=== PATIENT | male | born 1960 | race Two or more races ===

== ENCOUNTER 2016-08-10 13:13 | Inpatient (IN) | payer MEDICAID, OTHER ==
[2016-08-10 13:51] LABS: Hematocrit 51 % (42-52); Hemoglobin 16.7 g/dl (14.0-18.0); Mean Corpuscular HGB Conc 33 g/dl (31-36); Mean Corpuscular Hemoglobin 25 pg (27-31); Mean Corpuscular Volume 76 fL (80-94); Mean Platelet Volume 8 um3 (7.4-10.4); Red Cell Distribution Width 15 % (10.5-15); White Blood Count 14.8 10^3/ul (3.5-10.8)
[2016-08-10 14:02] LABS: Benzodiazepine Urine Screen None Detected (None Detect)
[2016-08-10 14:06] LABS: ALT 24 U/L (7-52); AST 18 U/L (13-39); Albumin 4.6 g/dL (3.2-5.2); Alkaline Phosphatase 55 U/L (34-104); Anion Gap 10 mmol/L (2-11); BUN/Creatinine Ratio 20.4 (8-20); Blood Urea Nitrogen 19 mg/dL (6-24); CO2 Carbon Dioxide 26 mmol/L (22-32); Calcium 10.1 mg/dL (8.6-10.3); Chloride 100 mmol/L (101-111); EGFR African American 107.7 (>60); EGFR Non-African American 83.7 (>60); Globulin 2.9 g/dL (2-4); Glucose 106 mg/dL (70-100); Potassium 3.9 mmol/L (3.5-5.0); Sodium 136 mmol/L (133-145); Total Protein 7.5 g/dL (6.4-8.9)
[2016-08-10] MEDS ORDERED: LORazepam TAB(*) 1 MG PO ONE (14:13)
[2016-08-10 14:15] LABS: Urine Bacteria Absent (Absent); Urine Bilirubin Negative (Negative); Urine Glucose Negative (Negative); Urine Nitrite Negative (Negative)
[2016-08-10 14:21] LABS: TSH (Thyroid Stimulating Horm) 4.02 mcIU/mL (0.34-5.60)
[2016-08-10 14:22] LABS: Acetaminophen < 15 mcg/mL; Alcohol < 10 mg/dL (<10); Salicylate < 2.50 mg/dL (<30)
[2016-08-10] MEDS ORDERED: Acetaminophen TAB* 325 MG PO PRN (16:06)
[2016-08-10] MEDS ORDERED: Nicotine Inhaler* 10 MG AMP INH PRN (16:06)
[2016-08-10] MEDS ORDERED: Al Hydrox/Mg Hydrox/Simet LIQ* 30 ML UDC PO PRN (16:06)
[2016-08-10] MEDS ORDERED: hydrOXYzine HCL TAB* 50 MG PO PRN (16:09)
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
[2016-08-10] MEDS: QUEtiapine XR TAB* 200 MG PO SCH (20:30)
[2016-08-10] MEDS: Mirtazapine TAB* 15 MG PO SCH (20:30)
[2016-08-11] MEDS: Citalopram TAB* 20 MG PO SCH (08:49)
[2016-08-11] MEDS: Vitamin THERAPEUTIC TAB PO SCH (08:49)
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
[2016-08-11] MEDS: QUEtiapine XR TAB* 200 MG PO SCH (20:58)
[2016-08-11] MEDS: Mirtazapine TAB* 15 MG PO SCH (20:58)
[2016-08-12] MEDS: Vitamin THERAPEUTIC TAB PO SCH (08:19)
[2016-08-12] MEDS: Citalopram TAB* 20 MG PO SCH (08:20)
[2016-08-12 08:23] VITALS: BP 113/76
--- NOTE | 2016-08-13 00:28 | DS ---
DISCHARGE SUMMARY: DATE OF ADMISSION: 08/10/16 DATE OF DISCHARGE: 08/12/16 DISCHARGE DIAGNOSES: Are as follows: Riesel I: Major depressive disorder, recurrent, severe without psychotic features. Riesel II: Deferred. Riesel III: Benign prostatic hypertrophy. Riesel IV: Severe primary support, legal, and financial stressors. Riesel V: At the time of admission was 34 and at the time of discharge is 59. CONDITION AT THE TIME OF DISCHARGE: Improved. The patient is calm, cooperative. He appears to euthymic. He has been eating all of his meals, bathing appropriately. He is future oriented with a plan to receive case management services through [facility] and to pursue getting disability and unemployment. The major stressor leading to this hospitalization was his lack of access to medications after losing his insurance approximately 4 months ago. We have addressed this by getting him set up with Medicaid for which the patient is very grateful and his medications have been resumed, which he is tolerating well. The patient steadfastly denies suicidal ideations. When asked for reasons of why he wants to remain live, he indicates his strong pee in God, believing that suicide would be a sin and that he feels the God is trying to teach him humility, which is lessen that he feels prepared to learn. MENTAL STATUS EXAMINATION: At the time of discharge, the patient is an aging male, appearing somewhat older than his stated age. He has fair grooming, wearing blue patient scrubs. He has a salt and pepper graying jones. He makes good eye contact and is easy to establish a rapport with. Speech has a thick [place] accent. Mood is euthymic with a full affect. Thought process is linear and goal directed. Thought content is significant for his desire to go home from the hospital and meet his new tenant, who is renting a room in his house in the [facility]. The patient denies suicidal or homicidal thoughts. He denies auditory or visual hallucinations. There is no evidence of paranoia. Insight and judgement appeared to be fair given his willingness to follow up with outpatient treatment in the community. Cognitively, he is awake and alert with what would appear to be an average intellect. DISCHARGE INSTRUCTIONS: To the patient are as follows: A. Medications: He is taking citalopram 20 mg p.o. daily, mirtazapine 45 mg p.o. q.h.s., Seroquel XR 200 mg p.o. q.h.s. B. Diet: Regular. C. Activities: As tolerated. The patient is strongly encouraged to abstain from tobacco products; however, he is declining continuation of nicotine replacement therapies on an outpatient basis indicating his preference to continue smoking cigarettes at this time. There are no studies pending at the time of discharge. D. Followup care: The patient will follow up with the [facility] on 08/14/16. There, he sees therapist, Candelario Paz, and psychiatrist, Terence Weber. HOSPITAL COURSE: Part A: Reason for admission: The patient is a 56-year-old male with a history of major depressive disorder, admitted on an involuntary status after the police responded to a 911 call by a member of the social security administration, who had reported that the patient had made a suicidal statement over the phone while he was seeking disability services. The patient continued to present with depressed mood and suicidal ideations in our emergency room. He was noted to have made a statement "if it was not for my pee in God, I would have killed myself by now." Apparently, the patient has been functioning extremely below his baseline due to stress that he has been experiencing for at least the past 3 years. He indicates that he has orders of protection by both his and his elderly father with claims that he has been abusive towards his father, his , and his children. As a result , he states that he has lost all family contacts and social supports. He does not know at this time where his parents or his children are residing or who is caring for them. He does have a court date to resolve his orders of protection on 08/21/16. 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 He also states that he had difficulty falling asleep, anhedonia, decreased energy, poor concentration, lack of appetite with unintentional 50-pound weight loss, psychomotor retardation, and social isolation. He has been spending all day in bed, unable to shower or maintain his hygiene, and unable to go out and look for a new job. He indicates that every day he thinks about suicide, but has not acted on this because of his pee. 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 Apparently, he had been put on some type of occupational probation due to some problems with his teaching and his interaction with female students. In 2015, his only sibling, a brother in [place], of cancer resulting in his parents coming to live with him here in the [place]. Apparently, his second moved out in 2012 with their 4 children and gotten order of protection against him, which he violated and he has been on probation ever since, which has been approximately 2 -1/2 years. Subsequently, his mother developed Alzheimer's disease and his father developed some physical disabilities resulting in increased caregiver stress. Things came to a head in April of 2016, when his father and mother were both medically hospitalized here at [facility], somehow Adult Protective Services became involved and there was an accusation that he had been physically aggressive towards his father resulting in an order of protection in which the patient had to leave his own house until his parents could be placed. He was staying briefly in a motel and sleeping in his car and then went to a local homeless group home around the time that he was terminated from [facility] in late April. He was not actually able to return to his home until sometime in July 2016 and does not know currently where his parents are. Part B: Psychiatric treatment rendered: The patient was admitted to the adult behavioral health unit and placed on q.15-minute checks for his own safety. We immediately resumed the medications that he had stopped taking 4 months ago when he had lost his insurance. These included citalopram 20 mg daily, mirtazapine 45 mg at night, and quetiapine XR 200 mg at night. He tolerated these quite well. His main stressor appeared to be lack of access to medications and therefore, we hooked him up with Medicaid coverage for which he was very grateful. We are able to talk to his therapist, Candelario Paz, at [facility], who indicated that the patient does regularly follow up with them. They felt that resuming his medications would likely be very helpful. In addition, they indicated his need for case management services in order to help him navigate social science analyst in the community specifically to get on unemployment and perhaps disability coverage in order to have an income. For this reason, we were able to fill out an application for case management services in the community, which the patient was fully cooperative with. He continued to express his pee in God and his assurance that he would not take his own due to his relationship with God. We did not see any evidence of self harm while he was on our unit and we felt that his issues could be addressed effectively in the outpatient setting. At this time, we do not feel that it would be justified to keep him any further on an involuntary basis as he is requesting discharge and he appears motivated to get the help that he needs in a less restrictive setting. [id number]/CPS #: [id number] MTDD
== END 2016-08-12 14:15 | disposition home or self-care (01) | DRG 751 ==
LOC: ED 13:13 → BSU 16:06
PROVIDERS: ADMIT Psychiatry & Neurology Psychiatry; ATTEND Psychiatry & Neurology Psychiatry
DX: F33.2 Major depressive disorder, recurrent severe without psychotic features (principal); F17.210 Nicotine dependence, cigarettes, uncomplicated; N40.0 Benign prostatic hyperplasia without lower urinary tract symptoms; Z81.8 Family history of other mental and behavioral disorders
CPT/HCPCS: 36415; 80053; 80307; 80320; 80329; 81003; 81015; 84443; 85025; 87086; 99222; 99238; A9270-GY; G0480

== ENCOUNTER 2016-10-15 10:56 | Inpatient (IN) | payer MEDICAID, OTHER ==
[2016-10-15] MEDS ORDERED: LORazepam TAB(*) 1 MG PO ONE (11:35)
--- NOTE | 2016-10-15 11:44 | ED ---
Psychiatric Complaint - HPI Summary HPI Summary: 56 male presents with complaints of suicidal ideations and thoughts of suicide. Patient states he ran out of his medications 2 days ago and his depression and anxiety has become out of control. Denies any homicidal ideations. Has not attempted to hurt himself or others. States he is very depressed because he lost everything in his life. He has not showered or ate in 2 days. Unable to take care of himself. Denies hallucinations, alcohol and drug use. States he has been hospitalized multiple times in the past with the last time being in April. Admits to BPH, but denies other PMHx. States his psychiatrist, the mental health director, is retiring and has been unable to see him and refill his meds. - History Of Current Complaint Chief Complaint: EDMentalHealth Time Seen by Provider: 10/15/16 11:10 Hx Obtained From: Patient Onset/Duration: Gradual Onset, Lasting Days - 2, Worse Since Timing: Constant Severity Currently: Severe Character: Depressed, Anxious Aggravating Factor(s): Recent Stress, Other - ran out of psychiatric medications Alleviating Factor(s): Medication, Counseling Associated Signs And Symptoms: Positive: Sleep Disturbance - unable to sleep, Appetite Change - has not eaten or showered, Social Withdrawal Related History: Positive For: Prior Psychiatric Issues Has Suicidal: Reports: Thoughts. Denies: With A Plan, Demonstrates Gesture, Has Prior Attempt(s) Has Homicidal: Denies: Thoughts, With A Plan - Allergies/Home Medications Allergies/Adverse Reactions: Allergies Allergy/AdvReac Type Severity Reaction Status Date / Time No Known Allergies Allergy Verified 05/08/12 11:05 Home Medications: Home Medications Citalopram TAB* [CeleXA TAB*] 40 mg PO DAILY 10/15/16 [History Confirmed ] Rosuvastatin (NF) [Crestor (NF)] 10 mg PO BEDTIME 10/15/16 [History Confirmed ] PMH/Surg Hx/FS Hx/Imm Hx Endocrine/Hematology History: Reports: Hx Unexplained Bleeding - upper gi bleed 05/19/2012 Denies: Hx Anticoagulant Therapy, Hx Blood Disorders, Hx Blood Transfusions, Hx Bone Marrow Disease, Hx Diabetes, Hx Systemic Lupus Erythematosus, Hx Sickle Cell Disease, Hx Thyroid Disease, Hx Anemia Cardiovascular History: Reports: Hx Hypercholesterolemia Denies: Hx Angina, Hx Auto Implanted Cardiovert Defib, Hx Hypertension, Hx Pacemaker/ICD Comment Only: Other Cardiovascular Problems/Disorders - noted pt has bbb Respiratory History: Reports: Hx Pneumonia - currently has pneumonia last 2 weeks Denies: Hx Asthma, Hx Chronic Obstructive Pulmonary Disease (COPD) GI History: Reports: Hx Gastrointestinal Bleed - pt had bloody emesis and is reason for admission. Comment Only: Hx Ulcer - unknown. possible History: Reports: Hx Benign Prostatic Hyperplasia - had gone to md on 2012, Other Problems/Disorders - enlarged prostate Denies: Hx Acute Renal Failure, Hx Kidney Stones, Hx Renal Disease Musculoskeletal History: Reports: Hx Arthritis Denies: Hx Orthopedic Injury, Hx Osteoporosis Sensory History: Reports: Hx Contacts or Glasses - Patient has with him Denies: Hx Hearing Aid Opthamlomology History: Reports: Hx Contacts or Glasses - Patient has with him Neurological History: Reports: Hx Headaches, Hx Migraine Denies: Hx Dementia, Hx Seizures, Other Neuro Impairments/Disorders Psychiatric History: Reports: Hx Anxiety - pt takes anti anxiety med, and ativan , Hx Depression - unknown,, Hx Community Mental Health Tx, Hx of Violent Episodes Against Others - Patient has restraining order against him Denies: Hx Eating Disorder, Hx Substance Abuse - Surgical History Surgery Procedure, Year, and Place: n/a - Immunization History Immunizations Up to Date: Yes Infectious Disease History: Denies: Hx Hepatitis, Hx Human Immunodeficiency Virus (HIV), Traveled Outside the [place] in Last 30 Days - Family History Known Family History: Positive: Unknown, Other - Alzheimer's (mother) Family History: Pt is having a panic attack and unable to contribute a FHx - Social History Alcohol Use: None Alcohol Amount: wine today Substance Use Type: Reports: None Smoking Status (MU): Former Smoker Type: Cigarettes Length of Time of Smoking/Using Tobacco: 3 months Have You Smoked in the Last Year: Yes Review of Systems Constitutional: Negative Eyes: Negative ENT: Negative Cardiovascular: Negative Respiratory: Negative Gastrointestinal: Negative Musculoskeletal: Negative Skin: Negative Positive: Anxious, Depressed All Other Systems Reviewed And Are Negative: Yes Physical Exam Triage Information Reviewed: Yes Vital Signs On Initial Exam: Initial Vitals Temp Pulse Resp BP Pulse Ox 98.3 F 110 26 113/74 100 10/15/16 10:58 10/15/16 10:58 10/15/16 10:58 10/15/16 10:58 10/15/16 10:58 tachycardia noted, patient is anxious Vital Signs Reviewed: Yes Appearance: Positive: Well-Appearing - appears very anxious and upset, No Pain Distress, Well-Nourished Skin: Positive: Warm, Skin Color Reflects Adequate Perfusion, Dry Head/Face: Positive: Normal Head/Face Inspection Eyes: Positive: Normal, ANGEL LUIS, Conjunctiva Clear ENT: Positive: Normal ENT inspection, Hearing grossly normal, Pharynx normal, TMs normal Neck: Positive: Supple Respiratory/Lung Sounds: Positive: Clear to Auscultation, Breath Sounds Present. Negative: Decreased Breath Sounds, Rales, Rhonchi, Stridor, Wheezes Cardiovascular: Positive: Normal, RRR, Pulses are Symmetrical in both Upper and Lower Extremities. Negative: Murmur, Rub Abdomen Description: Positive: Nontender, Soft Bowel Sounds: Positive: Present Musculoskeletal: Positive: Normal, Strength/ROM Intact Neurological: Positive: Normal, Sensory/Motor Intact, Alert, Oriented to Person Place, Time Psychiatric: Positive: Anxious, Depressed AVPU Assessment: Alert Diagnostics - Vital Signs Vital Signs Temp Pulse Resp BP Pulse Ox 10/15/16 11:02 98.3 F 107 26 113/74 100 10/15/16 10:58 98.3 F 110 26 113/74 100 - Laboratory Result Diagrams: 10/15/16 11:24 10/15/16 11:24 Lab Statement: Any lab studies that have been ordered have been reviewed, and results considered in the medical decision making process. Course/Dx - Course Course Of Treatment: patient was medically cleared for [facility]. given ativan to help with anxiety. decided he will be admitted to [facility], voluntarily. WBC and RBC elevated however compared to previous labs and he has hemachromatosis. Labs similar previously. No acute medical problem at this time. Clear for admission. - Differential Dx/Clinical Impression Differential Diagnosis/HQI/PQRI: Positive: Acute Psychosis, Anxiety, Depression Provider Diagnosis: Depression, Anxiety - Physician Notifications Discussed Care Of Patient With: [facility] Instructed by Provider To: Admit As Inpatient Patient Is Medically Stable For: Psych Evaluation Discharge - Discharge Plan Condition: Stable Disposition: PSYCHIATRIC FACILITY-[facility]
[2016-10-15 12:15] LABS: Hematocrit 51 % (42-52); Hemoglobin 16.4 g/dl (14.0-18.0); Mean Corpuscular HGB Conc 32 g/dl (31-36); Mean Corpuscular Hemoglobin 24 pg (27-31); Mean Corpuscular Volume 76 fL (80-94); Mean Platelet Volume 8 um3 (7.4-10.4); Red Blood Count 6.77 10^6/ul (4.0-5.4); Red Cell Distribution Width 15 % (10.5-15); White Blood Count 12.2 10^3/ul (3.5-10.8)
[2016-10-15 12:26] LABS: ALT 26 U/L (7-52); AST 29 U/L (13-39); Albumin 4.4 g/dL (3.2-5.2); Alkaline Phosphatase 54 U/L (34-104); Anion Gap 11 mmol/L (2-11); BUN/Creatinine Ratio 19.4 (8-20); Blood Urea Nitrogen 18 mg/dL (6-24); CO2 Carbon Dioxide 22 mmol/L (22-32); Calcium 9.5 mg/dL (8.6-10.3); Chloride 102 mmol/L (101-111); EGFR African American 107.7 (>60); EGFR Non-African American 83.7 (>60); Globulin 2.7 g/dL (2-4); Glucose 93 mg/dL (70-100); Sodium 135 mmol/L (133-145); Total Protein 7.1 g/dL (6.4-8.9)
[2016-10-15 12:34] LABS: Acetaminophen < 15 mcg/mL; Alcohol < 10 mg/dL (<10); Salicylate < 2.50 mg/dL (<30)
[2016-10-15 12:45] LABS: TSH (Thyroid Stimulating Horm) 1.61 mcIU/mL (0.34-5.60)
[2016-10-15 12:48] LABS: Urine Bacteria Absent (Absent); Urine Bilirubin Negative (Negative); Urine Glucose Negative (Negative); Urine Nitrite Negative (Negative)
[2016-10-15] MEDS ORDERED: Nicotine GUM* 2 MG PO PRN (13:06)
[2016-10-15] MEDS ORDERED: Nicotine Inhaler* 10 MG AMP INH PRN (13:06)
[2016-10-15] MEDS ORDERED: Al Hydrox/Mg Hydrox/Simet LIQ* 30 ML UDC PO PRN (13:06)
[2016-10-15] MEDS ORDERED: Acetaminophen TAB* 325 MG PO PRN (13:06)
[2016-10-15 13:23] LABS: Benzodiazepine Urine Screen Presumptive Positive (None Detect)
[2016-10-15] MEDS ORDERED: Mouth Piece, Nicotine* 1 EACH CARTRIDGE INH ONE (14:00)
[2016-10-15] MEDS: Atorvastatin* 20 MG TAB PO SCH (20:29)
[2016-10-15] MEDS: QUEtiapine XR TAB* 200 MG PO SCH (20:30)
[2016-10-15] MEDS: Mirtazapine TAB* 15 MG PO SCH (20:30)
[2016-10-15] MEDS: Nicotine Patch Removal NOTE PATCH OFF SCH (22:18)
[2016-10-16] MEDS: Nicotine PATCH 21 MG/24 HR* PATCH TRANSDERM SCH (08:32)
[2016-10-16] MEDS: Citalopram TAB* 40 MG PO SCH (08:32)
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
[2016-10-16] MEDS: Mirtazapine TAB* 15 MG PO SCH (20:29)
[2016-10-16] MEDS: Atorvastatin* 20 MG TAB PO SCH (20:29)
[2016-10-16] MEDS: QUEtiapine XR TAB* 200 MG PO SCH (20:29)
[2016-10-16] MEDS: Nicotine Patch Removal NOTE PATCH OFF SCH (20:45)
[2016-10-17] MEDS: Citalopram TAB* 40 MG PO SCH (08:38)
[2016-10-17] MEDS: LORazepam TAB(*) 1 MG PO PRN ×3 (08:38→20:04)
[2016-10-17] MEDS: Nicotine PATCH 21 MG/24 HR* PATCH TRANSDERM SCH (08:39)
[2016-10-17 08:45] LABS: HDL Cholesterol 54.8 mg/dL
--- NOTE | 2016-10-17 18:08 | PN ---
Subjective - Subjective Service Type: 72922 Hosp care 15 min low complexity Subjective: The patient remains anxious and depressed but denies SI. He states that he has talked to Dr. Weber about the possibility of ECT but is ambivalent about it. "It's a possibility of last resort." He is active on the milieu and attending groups. Objective - Appearance Appearance: Well Developed/Nourished Dysmorphic Features: No Hygiene: Normal Grooming: Well Kept - Behavior Psychomotor Activities: Abnormal-Decreased Exhibits Abnormal Movement: No - Attitude and Relatedness Attitude and Relatedness: Cooperative Eye Contact: Good - Speech Quality: Unpressured Latencies: Normal Quantity: Appropriate - Mood Patient's Decription of Mood: "Sad" - Affect Observed Affect: Depressed Affect Consistent with: Dysphoria - Thought Process Patient's Thought Process: Coherent Thought Content: No Passive Wish, No Suicidal Planning, No Homicidal Ideation, No Paranoid Ideation - Sensorium Experiencing Hallucinations: No, Sensorium is Clear Type of Hallucinations: Visual: No, Auditory: No, Command: No - Level of Consciousness Level of Consciousness: Alert Orientation: Yes Intact, Yes Orientated to Time, Yes Orientated to Place, Yes Orientated to Person - Impulse Control Impulse Control: Tenuous - Insight and Judgement Insight and Judgement: Fair - Group Participation Particating in Group Activities: Yes - Medication Management Medication Management Adherence: Yes Assessment - Assessment Merits Inpatient Hospitalization: For Immediate Safety, For Stabilization Inpatient DSM-IV Dx: MDD recurrent, severe without psychotic features Clinical Impression: 56 y.o. , male, recently terminated [facility] with a history of recurrent MDD admitted on voluntary basis secondary to severe depression and passive SI. Plan - Plan Treatment Plan: Name: EZIO MINOR Birthdate: 1960 [id number] We have resumed outpatient medications, including citalopram 40mg PO qday, mirtazapine 45mg PO qhs and quetiapine XR 200mg PO qhs. Patient active in milieu activities. Continue to treat. Continued Medication Management: Continue Outpt Medication Medications: Current Medications Acetaminophen (Tylenol Tab*) 650 mg PO Q4H PRN PRN Reason: for pain; or Temp >101 F Al Hydrox/Mg Hydrox/Simethicone (Maalox Plus*) 30 ml PO Q4H PRN PRN Reason: INDIGESTION Atorvastatin Calcium (Lipitor*) 20 mg PO BEDTIME [facility] PRN Reason: Protocol Last Admin: 10/16/16 20:29 Dose: 20 mg Citalopram Hydrobromide (Celexa Tab*) 40 mg PO DAILY [facility] Last Admin: 10/17/16 08:38 Dose: 40 mg Lorazepam (Ativan Tab(*)) 1 mg PO Q6H PRN PRN Reason: ANXIETY Last Admin: 10/17/16 14:05 Dose: 1 mg Mirtazapine (Remeron Tab*) 45 mg PO BEDTIME [facility] Last Admin: 10/16/16 20:29 Dose: 45 mg Nicotine (Nicotine Inhaler*) 10 mg INH Q2H PRN PRN Reason: CRAVING Nicotine (Nicotine Patch 21 Mg/24 Hr*) 1 patch TRANSDERM DAILY@0800 [facility] Last Admin: 10/17/16 08:39 Dose: 1 patch Nicotine Polacrilex (Nicotine Gum*) 2 mg PO Q2H PRN PRN Reason: CRAVING Pharmacy Profile Note (Nicotine Patch Removal Note*) 1 note PATCH OFF 2100 [facility] Last Admin: 10/16/16 20:45 Dose: Not Given Quetiapine Fumarate (Seroquel Xr Tab*) 200 mg PO BEDTIME [facility] Last Admin: 10/16/16 20:29 Dose: 200 mg - Discharge Plan Discharge Plan: Inpatient Hospitalization
[2016-10-17] MEDS: Atorvastatin* 20 MG TAB PO SCH (20:05)
[2016-10-17] MEDS: Mirtazapine TAB* 15 MG PO SCH (20:05)
[2016-10-17] MEDS: QUEtiapine XR TAB* 200 MG PO SCH (20:05)
[2016-10-17] MEDS: Nicotine Patch Removal NOTE PATCH OFF SCH (21:27)
[2016-10-18] MEDS: Citalopram TAB* 40 MG PO SCH (08:17)
[2016-10-18] MEDS: LORazepam TAB(*) 1 MG PO PRN ×3 (08:17→21:44)
[2016-10-18] MEDS: Nicotine PATCH 21 MG/24 HR* PATCH TRANSDERM SCH (09:19)
[2016-10-18] MEDS: Atorvastatin* 20 MG TAB PO SCH (20:32)
[2016-10-18] MEDS: Mirtazapine TAB* 15 MG PO SCH (20:32)
[2016-10-18] MEDS: QUEtiapine XR TAB* 200 MG PO SCH (20:32)
[2016-10-18] MEDS: Nicotine Patch Removal NOTE PATCH OFF SCH (21:45)
[2016-10-19] MEDS: Citalopram TAB* 40 MG PO SCH (08:25)
[2016-10-19] MEDS: Nicotine PATCH 21 MG/24 HR* PATCH TRANSDERM SCH (08:25)
[2016-10-19] MEDS: LORazepam TAB(*) 1 MG PO PRN ×3 (08:26→21:24)
--- NOTE | 2016-10-19 11:43 | PN ---
Subjective - Subjective Service Type: 02161 Hosp care 15 min low complexity Subjective: The patient appears in better spirits today and denies SI. "The most miraculous thing happened here over the weekend. I found out that my son's best friend is admitted here also. I met him and we talked for over 4 hours. It made me feel so much better." The patient is asked about whether he would agree to having us sign him up for case management services in the community, now that his medicaid is up and active, and he enthusiastically agrees to this. He has been active in the milieu and going to all scheduled groups as expected. Objective - Appearance Appearance: Well Developed/Nourished Dysmorphic Features: No Hygiene: Normal Grooming: Fairly Well Kept - Behavior Psychomotor Activities: Normal Exhibits Abnormal Movement: No - Attitude and Relatedness Attitude and Relatedness: Cooperative Eye Contact: Fair - Speech Quality: Unpressured Latencies: Normal Quantity: Appropriate - Mood Patient's Decription of Mood: "Okay" - Affect Observed Affect: Fair Affect Consistent with: Euthymia - Thought Process Patient's Thought Process: Coherent Thought Content: No Passive Wish, No Suicidal Planning, No Homicidal Ideation, No Paranoid Ideation - Sensorium Experiencing Hallucinations: No, Sensorium is Clear Type of Hallucinations: Visual: No, Auditory: No, Command: No - Level of Consciousness Level of Consciousness: Alert Orientation: Yes Intact, Yes Orientated to Time, Yes Orientated to Place, Yes Orientated to Person - Impulse Control Impulse Control: Tenuous - Insight and Judgement Insight and Judgement: Fair - Group Participation Particating in Group Activities: Yes - Medication Management Medication Management Adherence: Yes Assessment - Assessment Merits Inpatient Hospitalization: Consolidate Improvements, Pending Safe DC Plan Inpatient DSM-IV Dx: MDD recurrent, severe without psychotic features Clinical Impression: 56 y.o. , male, [facility] with a history of recurrent MDD admitted on voluntary basis secondary to severe depression and passive SI. Plan - Plan Treatment Plan: Name: EZIO MINOR Birthdate: 1960 [id number] We have resumed outpatient medications, including citalopram 40mg PO qday, mirtazapine 45mg PO qhs and quetiapine XR 200mg PO qhs. Patient active in milieu activities. Will refer to outpatient case management services. Target d /c to home tomorrow (10/20). Continued Medication Management: Continue Outpt Medication Medications: Current Medications Acetaminophen (Tylenol Tab*) 650 mg PO Q4H PRN PRN Reason: for pain; or Temp >101 F Al Hydrox/Mg Hydrox/Simethicone (Maalox Plus*) 30 ml PO Q4H PRN PRN Reason: INDIGESTION Atorvastatin Calcium (Lipitor*) 20 mg PO BEDTIME [facility] PRN Reason: Protocol Last Admin: 10/18/16 20:32 Dose: 20 mg Citalopram Hydrobromide (Celexa Tab*) 40 mg PO DAILY [facility] Last Admin: 10/19/16 08:25 Dose: 40 mg Lorazepam (Ativan Tab(*)) 1 mg PO Q6H PRN PRN Reason: ANXIETY Last Admin: 10/19/16 08:26 Dose: 1 mg Mirtazapine (Remeron Tab*) 45 mg PO BEDTIME [facility] Last Admin: 10/18/16 20:32 Dose: 45 mg Nicotine (Nicotine Inhaler*) 10 mg INH Q2H PRN PRN Reason: CRAVING Nicotine (Nicotine Patch 21 Mg/24 Hr*) 1 patch TRANSDERM DAILY@0800 [facility] Last Admin: 10/19/16 08:25 Dose: 1 patch Nicotine Polacrilex (Nicotine Gum*) 2 mg PO Q2H PRN PRN Reason: CRAVING Pharmacy Profile Note (Nicotine Patch Removal Note*) 1 note PATCH OFF 2100 [facility] Last Admin: 10/18/16 21:45 Dose: 1 note Quetiapine Fumarate (Seroquel Xr Tab*) 200 mg PO BEDTIME [facility] Last Admin: 10/18/16 20:32 Dose: 200 mg - Discharge Plan Discharge Plan: Outpatient Follow Up Outpatient Program: [facility]
[2016-10-19] MEDS: Atorvastatin* 20 MG TAB PO SCH (20:28)
[2016-10-19] MEDS: QUEtiapine XR TAB* 200 MG PO SCH (20:29)
[2016-10-19] MEDS: Mirtazapine TAB* 15 MG PO SCH (20:29)
[2016-10-19] MEDS: Nicotine Patch Removal NOTE PATCH OFF SCH (23:05)
[2016-10-20 07:51] VITALS: BP 107/69
[2016-10-20] MEDS: Nicotine PATCH 21 MG/24 HR* PATCH TRANSDERM SCH (08:02)
[2016-10-20] MEDS: Citalopram TAB* 40 MG PO SCH (08:02)
[2016-10-20] MEDS: LORazepam TAB(*) 1 MG PO PRN (08:25)
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
== END 2016-10-20 12:30 | disposition home or self-care (01) | DRG 751 ==
LOC: ED 10:56 → BSU 13:06
PROVIDERS: ADMIT Psychiatry & Neurology Psychiatry; ATTEND Psychiatry & Neurology Psychiatry
DX: F33.2 Major depressive disorder, recurrent severe without psychotic features (principal); R45.851 Suicidal ideations; N40.0 Benign prostatic hyperplasia without lower urinary tract symptoms; E78.5 Hyperlipidemia, unspecified; F17.210 Nicotine dependence, cigarettes, uncomplicated; Z79.899 Other long term (current) drug therapy; Z81.8 Family history of other mental and behavioral disorders
CPT/HCPCS: 36415; 80053; 80061; 80307; 80320; 80329; 81003; 81015; 83036; 84443; 85025; 99222; 99231; 99238; A9270-GY; G0480

== ENCOUNTER 2016-12-13 12:55 | Emergency (ER) | payer MEDICAID, OTHER ==
--- NOTE | 2016-12-13 16:02 | ED ---
Lower Extremity - HPI Summary HPI Summary: Patient presents with left lower leg hematoma and slight pain after kicking a ball at soccer this morning. Since arrival to ED, he states the hematoma has improved significantly, but wanted to assure there was no fracture of the lower leg. Denies numbness, tingling, temperature changes to the area. NV exam intact. Denies any pain or decreased feeling in the foot and denies any knee pain. There is a 4x4 heamtoma to the left lower leg with slight discoloration without concern for compartment. The area is improving and he is ambulating without issue. Denies any other complaints at this time. Pain is 2/10 and discretely located without radiation of pain. No evidence of compartment syndrome, spreading hematoma or blood pooling. - History of Current Complaint Chief Complaint: EDExtremityLower Stated Complaint: LT LEG PAIN/SWELLING Time Seen by Provider: 12/13/16 14:25 Hx Obtained From: Patient Mechanism Of Injury: Direct Blow Onset of Pain: Immediate Onset/Duration: Minutes Severity Initially: Moderate Severity Currently: Moderate Pain Intensity: 0 Pain Scale Used: 0-10 Numeric Timing: Constant Location: Is Discrete @ - left lower anterior leg Associated Signs And Symptoms: Positive: Swelling, Bruising Aggravating Factor(s): Standing, Ambulation Alleviating Factor(s): Rest Able to Bear Weight: Yes - Risk Factors Gout Risk Factors: Age Over 40 DVT Risk Factors: Negative - Allergies/Home Medications Allergies/Adverse Reactions: Allergies Allergy/AdvReac Type Severity Reaction Status Date / Time No Known Allergies Allergy Verified 10/17/16 13:34 PMH/Surg Hx/FS Hx/Imm Hx Previously Healthy: Yes Endocrine/Hematology History: Reports: Hx Unexplained Bleeding - upper gi bleed 05/19/2012 Denies: Hx Anticoagulant Therapy, Hx Blood Disorders, Hx Blood Transfusions, Hx Bone Marrow Disease, Hx Diabetes, Hx Systemic Lupus Erythematosus, Hx Sickle Cell Disease, Hx Thyroid Disease, Hx Anemia Cardiovascular History: Reports: Hx Hypercholesterolemia Denies: Hx Angina, Hx Auto Implanted Cardiovert Defib, Hx Hypertension, Hx Pacemaker/ICD Comment Only: Other Cardiovascular Problems/Disorders - noted pt has bbb Respiratory History: Reports: Hx Pneumonia - currently has pneumonia last 2 weeks Denies: Hx Asthma, Hx Chronic Obstructive Pulmonary Disease (COPD) GI History: Reports: Hx Gastrointestinal Bleed - pt had bloody emesis and is reason for admission. Comment Only: Hx Ulcer - unknown. possible History: Reports: Hx Benign Prostatic Hyperplasia - had gone to [facility] on 2012, Other Problems/Disorders - enlarged prostate Denies: Hx Acute Renal Failure, Hx Kidney Stones, Hx Renal Disease Musculoskeletal History: Reports: Hx Arthritis Denies: Hx Orthopedic Injury, Hx Osteoporosis Sensory History: Reports: Hx Contacts or Glasses - reading glasses Denies: Hx Cataracts, Hx Hearing Aid Opthamlomology History: Reports: Hx Contacts or Glasses - reading glasses Denies: Hx Cataracts Neurological History: Reports: Hx Headaches Denies: Hx Dementia, Hx Migraine, Hx Seizures, Other Neuro Impairments/ Disorders Psychiatric History: Reports: Hx Anxiety - pt takes anti anxiety med, and ativan , Hx Depression - unknown, Hx Inpatient Treatment - [facility] [place], Hx Community Mental Health Tx - [facility], Hx of Violent Episodes Against Others - Patient has restraining order against him Denies: Hx Eating Disorder, Hx Substance Abuse - Surgical History Surgery Procedure, Year, and Place: n/a Infectious Disease History: No Infectious Disease History: Denies: Hx Hepatitis, Hx Human Immunodeficiency Virus (HIV), Traveled Outside the [place] in Last 30 Days - Family History Known Family History: Positive: Unknown, Other - Alzheimer's (mother) - Social History Occupation: Employed Full-time Lives: With Family Alcohol Use: None Hx Substance Use: No Substance Use Type: Reports: None Hx Tobacco Use: Yes Smoking Status (MU): Light Every Day Tobacco Smoker Type: Cigarettes Length of Time of Smoking/Using Tobacco: 4 years; smoked before but quit for 8 years Have You Smoked in the Last Year: Yes Review of Systems Constitutional: Negative Eyes: Negative Respiratory: Negative Genitourinary: Negative Positive: no symptoms reported, see HPI Positive: Myalgia Positive: Bruising Neurological: Negative Psychological: Normal All Other Systems Reviewed And Are Negative: Yes Physical Exam Triage Information Reviewed: Yes Vital Signs On Initial Exam: Initial Vitals Temp Pulse Resp BP Pulse Ox 98.1 F 94 20 119/73 96 12/13/16 12:57 12/13/16 12:57 12/13/16 12:57 12/13/16 12:57 12/13/16 12:57 Vital Signs Reviewed: Yes Appearance: Positive: Well-Appearing, Well-Nourished Skin: Positive: Warm, Skin Color Reflects Adequate Perfusion, Other - ecchymosis over anterior left lower leg Head/Face: Positive: Normal Head/Face Inspection Eyes: Positive: Normal, ANGEL LUIS, Conjunctiva Clear Neck: Positive: Supple, No Lymphadenopathy Respiratory/Lung Sounds: Positive: Clear to Auscultation, Breath Sounds Present Cardiovascular: Positive: Normal, RRR, Pulses are Symmetrical in both Upper and Lower Extremities Musculoskeletal: Positive: Normal, Strength/ROM Intact, Pain @ - left lower anterior leg Neurological: Positive: Speech Normal Psychiatric: Positive: Normal Diagnostics - Vital Signs Vital Signs Temp Pulse Resp BP Pulse Ox 12/13/16 14:29 99 F 75 16 117/66 95 12/13/16 12:57 98.1 F 94 20 119/73 96 - Laboratory Lab Statement: Any lab studies that have been ordered have been reviewed, and results considered in the medical decision making process. Lower Extremity Course/Dx - Course Course Of Treatment: Denies numbness, tingling, temperature or color changes to the area. NV exam intact. No evidence of compartment syndrome, worsening hematoma or vascular compromise. no pain, pallor, pulselessness or parethesias noted. No poikolothermia. Hematoma has improved since arrival to the ED. xray shows soft tissue swelling, but no fracture is noted. Will encourage ice and return precautions if hematoma worsens. Patient agrees with plan and is OK with discharge. - Diagnoses Differential Diagnosis/HQI/PQRI: Positive: Compartment Syndrome, Contusion, Fracture (Closed), Fracture (Open) Provider Diagnoses: Hematoma Discharge - Discharge Plan Condition: Stable Disposition: HOME Patient Education Materials: Hematoma (ED) Referrals: Reagan Holm MD [Primary Care Provider] - Additional Instructions: Ice to the area Ibuprofen 600mg three times daily if symptoms become worse, return to the ED if you develop any color changes to the foot, temperature changes to the leg or foot - return to the ED immediately. Images - Images Full Body (No Head): 1 - hematoma measuring 4x4. NV exam intact. cap refill <2 sec.
[2016-12-13 16:31] VITALS: BP 112/68
--- NOTE | 2016-12-13 16:33 | RAD ---
Indication: Left lower extremity hematoma. 2 views of the left lower leg demonstrates no fracture. No other bone or joint abnormality is noted. IMPRESSION: Soft tissue swelling however no fracture is noted.
== END 2016-12-13 16:30 | disposition home or self-care (01) ==
LOC: ED 12:55
DX: S80.12XA Contusion of left lower leg, initial encounter (principal); X50.9XXA Other and unspecified overexertion or strenuous movements or postures, initial encounter; Y93.66 Activity, soccer; Y92.89 Other specified places as the place of occurrence of the external cause
CPT/HCPCS: 99281

== ENCOUNTER 2018-04-01 13:50 | Emergency (ER) | payer OTHER ==
[2018-04-01 14:35] VITALS: BP 124/79
--- NOTE | 2018-04-01 15:28 | UC ---
Lower Extremity/Ankle HPI - HPI Summary HPI Summary: 2 weeks ago patient caught his right foot on the leg of a piece of furniture. Has pain and swelling in his right fourth toe and the distal aspect of his foot which has not resolved. - History of Current Complaint Chief Complaint: UCLowerExtremity Stated Complaint: R FOOT INJURY Time Seen by Provider: 04/01/18 14:47 Hx Obtained From: Patient Onset/Duration: Sudden Onset, Lasting Weeks, Still Present Severity Initially: Moderate Severity Currently: Moderate Pain Intensity: 3 Pain Scale Used: 0-10 Numeric Aggravating Factor(s): Standing, Ambulation Alleviating Factor(s): Rest, Elevation Able to Bear Weight: Yes - Allergies/Home Medications Allergies/Adverse Reactions: Allergies Allergy/AdvReac Type Severity Reaction Status Date / Time bupropion [From Wellbutrin] Allergy Rash Verified 04/01/18 14:35 sertraline [From Zoloft] Allergy Nausea Verified 04/01/18 14:35 PMH/Surg Hx/FS Hx/Imm Hx Psychological History: Anxiety, Depression Other History Of: Negative For: Anticoagulant Therapy - Surgical History Surgical History: None Surgery Procedure, Year, and Place: n/a - Family History Known Family History: Positive: Non-Contributory - Social History Alcohol Use: Daily Alcohol Amount: Patient reports drinking wine daily Substance Use Type: None Smoking Status (MU): Former Smoker Type: Cigarettes Length of Time of Smoking/Using Tobacco: 4 years; smoked before but quit for 8 years Have You Smoked in the Last Year: Yes Household Exposure Type: Cigarettes - Immunization History Most Recent Influenza Vaccination: January 2016 Most Recent Tetanus Shot: not since he was a child Most Recent Pneumonia Vaccination: never Review of Systems All Other Systems Reviewed And Are Negative: Yes Constitutional: Positive: Negative Skin: Positive: Negative Respiratory: Positive: Negative Cardiovascular: Positive: Negative Gastrointestinal: Positive: Negative Musculoskeletal: Positive: Arthralgia, Decreased ROM, Edema Physical Exam Triage Information Reviewed: Yes Appearance: Well-Appearing, No Pain Distress, Well-Nourished Vital Signs: Initial Vital Signs Temp 95.9 F 04/01/18 14:32 Pulse 101 04/01/18 14:32 Resp 18 04/01/18 14:32 BP 124/79 04/01/18 14:32 Pulse Ox 99 04/01/18 14:32 Vital Signs Reviewed: Yes Eyes: Positive: Conjunctiva Clear ENT: Positive: Hearing grossly normal Neck: Positive: Supple Respiratory: Positive: No respiratory distress, No accessory muscle use Cardiovascular: Positive: Pulses Normal Abdomen Description: Positive: Soft Musculoskeletal: Positive: ROM Limited @ - RIGHT FOOT TOES, Edema @ - RIGHT 4TH TOE, Other: - TTP RIGHT 4TH TOE AND FOREFOOT Neurological: Positive: Alert Psychological: Positive: Age Appropriate Behavior Skin: Negative: Rashes Diagnostics - Radiology RIGHT FOOT XRAY Radiology Interpretation Completed By: Radiologist Summary of Radiographic Findings: COMMINUTED FRACTURE OF THE BASE OF THE PROXIMAL PHALANX OF THE RIGHT FOURTH DIGIT Lower Extremity Course/Dx - Differential Dx/Diagnosis Provider Diagnosis: Fracture of fourth toe, right, closed Discharge - Sign-Out/Discharge Documenting (check all that apply): Patient Departure All imaging exams completed and their final reports reviewed: Yes - Discharge Plan Condition: Stable Disposition: HOME Patient Education Materials: Toe Fracture (ED) Referrals: Reagan Holm MD [Primary Care Provider] - If Needed Kaya Shirley MD [Medical Doctor] - 2 Weeks Additional Instructions: XRAY TODAY SHOWS A FRACTURE OF THE RIGHT 4TH TOE. FOLLOW-UP WITH ORTHOPEDICS WITHIN THE NEXT COUPLE OF WEEKS. OTC MEDS NEEDED FOR DISCOMFORT. REST, ELEVATE. - Billing Disposition and Condition Condition: STABLE Disposition: Home
== END 2018-04-01 15:52 | disposition home or self-care (01) ==
LOC: UCEAST 13:50
DX: S92.514A Nondisplaced fracture of proximal phalanx of right lesser toe(s), initial encounter for closed fracture (principal); W22.03XA Walked into furniture, initial encounter; Y92.9 Unspecified place or not applicable; Z88.8 Allergy status to other drugs, medicaments and biological substances; Z87.891 Personal history of nicotine dependence
CPT/HCPCS: 99211; G0463

== ENCOUNTER 2018-05-13 13:35 | Emergency (ER) | payer OTHER ==
--- NOTE | 2018-05-13 15:25 | ED ---
HPI Chest Pain - HPI Summary HPI Summary: Patient presents with right-sided rib pain status post fall 2 nights ago. He reports he was up in [facility] to be seen for his new diagnosis of lung cancer when he found out they did not take his insurance and cannot treat his condition. He was upset by this and as he was walking through his house, he reports he tripped mechanically and landed into furniture and then onto the floor. He hit his right side and has had pain here since. He reports this is worse with taking a deep breath, coughing and touching the area. He is worried he may have fractured his ribs. Prior to this and currently he denies chest pain, dizziness, weakness, fever, night sweats, chills. He has been wearing a binder around his ribs to aid in his pain relief. He is still upset about the fact that he has no lung currently to take care of his lung cancer. His PCP is Dr. Holm. Additionally, he has had a cough. He is not sure how long he's had this that it is productive. - History of Current Complaint Chief Complaint: EDGeneral Time Seen by Provider: 05/13/18 14:31 Hx Obtained From: Patient Pain Intensity: 9 - Additional Pertinent History Primary Care Physician: [id number] - Allergy/Home Medications Allergies/Adverse Reactions: Allergies Allergy/AdvReac Type Severity Reaction Status Date / Time bupropion [From Wellbutrin] Allergy Rash Verified 04/01/18 14:35 sertraline [From Zoloft] Allergy Nausea Verified 04/01/18 14:35 PMH/Surg Hx/FS Hx/Imm Hx Previously Healthy: Yes Endocrine/Hematology History: Reports: Hx Unexplained Bleeding - upper gi bleed 05/19/2012 Denies: Hx Anticoagulant Therapy, Hx Blood Disorders, Hx Blood Transfusions, Hx Bone Marrow Disease, Hx Diabetes, Hx Systemic Lupus Erythematosus, Hx Sickle Cell Disease, Hx Thyroid Disease, Hx Anemia Cardiovascular History: Reports: Hx Hypercholesterolemia Denies: Hx Angina, Hx Auto Implanted Cardiovert Defib, Hx Hypertension, Hx Pacemaker/ICD Comment Only: Other Cardiovascular Problems/Disorders - noted pt has bbb Respiratory History: Reports: Hx Pneumonia Denies: Hx Asthma, Hx Chronic Obstructive Pulmonary Disease (COPD) GI History: Reports: Hx Gastrointestinal Bleed - bloody emesis Comment Only: Hx Ulcer - unknown. possible History: Reports: Hx Benign Prostatic Hyperplasia - had gone to on 2012, Other Problems/Disorders - enlarged prostate Denies: Hx Acute Renal Failure, Hx Dialysis, Hx Kidney Stones, Hx Renal Disease Musculoskeletal History: Reports: Hx Arthritis Denies: Hx Orthopedic Injury, Hx Osteoporosis Sensory History: Reports: Hx Contacts or Glasses - reading glasses Denies: Hx Cataracts, Hx Hearing Aid Opthamlomology History: Reports: Hx Contacts or Glasses - reading glasses Denies: Hx Cataracts Neurological History: Reports: Hx Headaches Denies: Hx Dementia, Hx Migraine, Hx Seizures, Other Neuro Impairments/ Disorders Psychiatric History: Reports: Hx Anxiety - pt takes anti anxiety med, and ativan , Hx Depression - unknown, Hx Panic Disorder, [place] [facility] [place] [facility] Health [facility]x - [facility], Hx of Violent Episodes Against Others - Patient has restraining order against him Denies: Hx Eating Disorder, Hx Substance Abuse - Surgical History Surgery Procedure, Year, and Place: n/a Infectious Disease History: No Infectious Disease History: Denies: Hx Hepatitis, Hx Human Immunodeficiency Virus (HIV), Traveled Outside the [place] in Last 30 Days - Family History Known Family History: Positive: Other - Alzheimer's (mother) - Social History Alcohol Use: Daily Alcohol Amount: Patient reports drinking wine daily Hx Substance Use: No Substance Use Type: Reports: None Hx Tobacco Use: Yes Smoking Status (MU): Former Smoker Type: Cigarettes Length of Time of Smoking/Using Tobacco: 4 years; smoked before but quit for 8 years Have You Smoked in the Last Year: Yes Review of Systems Constitutional: Negative Negative: Fever, Chills, Fatigue Eyes: Negative Negative: Photophobia, Blurred Vision, Diplopia ENT: Negative Cardiovascular: Negative Positive: Cough. Negative: Shortness Of Breath Gastrointestinal: Negative Positive: no symptoms reported Musculoskeletal: Other - Rt side rib pain Skin: Negative Neurological: Negative Positive: Anxious All Other Systems Reviewed And Are Negative: Yes Physical Exam Triage Information Reviewed: Yes Vital Signs On Initial Exam: Initial Vitals Temp Pulse Resp BP Pulse Ox 97.3 F 116 18 118/94 97 05/13/18 13:38 05/13/18 13:38 05/13/18 13:38 05/13/18 13:38 05/13/18 13:38 Vital Signs Reviewed: Yes Appearance: Positive: Well-Appearing, Well-Nourished, Pain Distress - mild Skin: Positive: Warm, Skin Color Reflects Adequate Perfusion, Dry - no erythema , no ecchymosis over affected area Head/Face: Positive: Normal Head/Face Inspection Eyes: Positive: Normal, EOMI, ANGEL LUIS - no photophobia, Conjunctiva Clear - anicteric sclera. Negative: Conjunctiva Inflammed, Discharge ENT: Positive: Normal ENT inspection, Hearing grossly normal, Pharynx normal Dental: Negative: Dental Fracture @ Neck: Positive: Supple, Nontender Respiratory/Lung Sounds: Positive: Clear to Auscultation, Breath Sounds Present , Other - Rt lower ribs are w/ mild TTP - no flail chest. Negative: Unable to speak in full sentences, Fatigue Cardiovascular: Positive: Normal, RRR Musculoskeletal: Positive: Normal, Strength/ROM Intact Neurological: Positive: Normal, Sensory/Motor Intact, Alert, Oriented to Person Place, Time, CN Intact II-III Psychiatric: Positive: Anxious Diagnostics - Vital Signs Vital Signs Temp Pulse Resp BP Pulse Ox 05/13/18 13:38 97.3 F 116 18 118/94 97 - Laboratory Lab Statement: Any lab studies that have been ordered have been reviewed, and results considered in the medical decision making process. Chest Pain Course/Dx - Course Course Of Treatment: XR's reveal previous rib fractures on Rt side -no acute fractures. Pt reports he could have previously fx'd his ribs here. Since he is having pain here today, may have bruised ribs and/or intercostal strain. Advise continuing binder for relief as well as incentive spirometer to reduce risk of PNA which was not found today. He may follow-up with PCP re: pain here if it persists or worsens or he develop danger s/sx. Also discussed importance of him calling his PCP to make them aware [facility] does not take his insurance and he needs another referral. Pt is quite anxious but agrees to make this call. - Diagnoses Provider Diagnoses: Contusion of rib on right side, Fall from standing Discharge - Sign-Out/Discharge Documenting (check all that apply): Patient Departure - Discharge Plan Condition: Stable Disposition: HOME Patient Education Materials: How to Use an Incentive Spirometer (ED), Rib Contusion (ED) Referrals: Reagan Holm MD [Primary Care Provider] - Additional Instructions: You appear to have old fractures on this side of your chest but you may have bruising or muscle strain here from recent fall. See education for treatment. Use incentive spirometer to prevent pneumonia. You may continue to wear binder if this helps and use ice as well as ibuprofen alternating with acetaminophen as needed for pain. Call your PCP today to schedule a follow-up appointment. *If in the meantime you develop fever, chills, difficulty breathing, return to ED *NOTE: it is also important that you notify your PCP the referral to [facility] was unsuccessful as they do not take your insurance and you needs a new referral. - Billing Disposition and Condition Condition: STABLE Disposition: Home
[2018-05-13] MEDS ORDERED: Ibuprofen TAB* 800 MG PO ONE (15:41)
[2018-05-13 16:15] VITALS: BP 110/88
== END 2018-05-13 16:14 | disposition home or self-care (01) ==
LOC: ED 13:35
DX: S20.20XA Contusion of thorax, unspecified, initial encounter (principal); W01.190A Fall on same level from slipping, tripping and stumbling with subsequent striking against furniture, initial encounter; Y93.01 Activity, walking, marching and hiking; Y92.009 Unspecified place in unspecified non-institutional (private) residence as the place of occurrence of the external cause; R05 Cough; D49.1 Neoplasm of unspecified behavior of respiratory system; Z88.8 Allergy status to other drugs, medicaments and biological substances; Z87.891 Personal history of nicotine dependence
CPT/HCPCS: 71046; 99282; A9270-GY

== ENCOUNTER → 2018-07-24 17:55 | Emergency (ER) | payer OTHER ==
[~2018-07-24 17:55] MED LIST: Haloperidol INJ IV/IM* 5 MG/ML AMP IM ONE; LORazepam INJ* 2 MG/ML 1 ML VIAL IM ONE; LORazepam INJ* 2 MG/ML 1 ML VIAL ONE; diPHENhydraMINE IV* 50 MG/ML 1 ml VIAL (BENADRYL) IM ONE
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
[2018-07-24 18:50] LABS: Urine Appearance Clear; Urine Bilirubin Negative (Negative); Urine Blood Negative (Negative); Urine Color Straw; Urine Glucose Negative (Negative); Urine Ketones Negative (Negative); Urine Nitrite Negative (Negative); Urine Protein Negative (Negative); Urine Specific Gravity 1.005 (1.010-1.030); Urine Urobilinogen Negative (Negative)
[2018-07-24 18:56] LABS: ABS Basophils 0.1 10^3/ul (0-0.2); ABS Eosinophils 0.1 10^3/ul (0-0.6); ABS Lymphocytes 2.6 10^3/ul (1.0-4.8); ABS Monocytes 0.8 10^3/ul (0-0.8); ABS Neutrophils 6.3 10^3/ul (1.5-7.7); ABS Nucleated RBC 0 10^3/ul; Eosinophil % 0.8 %; Hematocrit 50 % (36-46); Hemoglobin 16.4 g/dL (14.0-18.0); Lymphocyte % 26.7 %; Mean Corpuscular HGB Conc 33 g/dL (31-36); Mean Corpuscular Hemoglobin 25 pg (27-31); Mean Corpuscular Volume 78 fL (80-94); Mean Platelet Volume 7.1 fL (7.4-10.4); Nucleated Red Blood Cells % 0.1; Platelet Count 312 10^3/uL (150-450); Red Blood Count 6.49 10^6 /uL (4.18-5.48); Red Cell Distribution Width 15 % (10.5-15); White Blood Count 9.9 10^3/uL (3.5-10.8)
[2018-07-24 19:12] LABS: ALT 51 U/L (7-52); AST 44 U/L (13-39); Albumin 4.5 g/dL (3.2-5.2); Albumin/Globulin Ratio 1.6 (1-3); Alkaline Phosphatase 58 U/L (34-104); BUN/Creatinine Ratio 14.9 (8-20); Blood Urea Nitrogen 15 mg/dL (6-24); CO2 Carbon Dioxide 28 mmol/L (22-32); Chloride 103 mmol/L (101-111); EGFR African American 91.5 (>60); EGFR Non-African American 75.6 (>60); Globulin 2.8 g/dL (2-4); Glucose 112 mg/dL (70-100); Sodium 139 mmol/L (135-145); Total Protein 7.3 g/dL (6.4-8.9)
[2018-07-24 19:14] LABS: Anion Gap 8 mmol/L (2-11); Potassium 5.3 mmol/L (3.5-5.0)
[2018-07-24 19:42] LABS: Acetaminophen < 15 mcg/mL; Alcohol 161 mg/dL (<10); Salicylate < 2.50 mg/dL (<30)
[2018-07-24 19:58] LABS: TSH (Thyroid Stimulating Horm) 0.59 mcIU/mL (0.34-5.60)
[2018-07-24 20:02] LABS: Barbiturates Urine Screen None Detected (None Detect); Benzodiazepine Urine Screen None Detected (None Detect); Urine Cannabinoids Screen None Detected (None Detect)
[2018-07-24 23:04] VITALS: BP 131/99
== END | disposition home or self-care (01) ==
LOC: ED 17:55
DX: F10.129 Alcohol abuse with intoxication, unspecified (principal); Z87.891 Personal history of nicotine dependence
CPT/HCPCS: 36415; 80053; 80307; 80320; 80329; 81003; 84443; 85025; 96372; 99284; G0480; J1200; J1630; J2060

== ENCOUNTER 2018-08-13 04:42 | Emergency (ER) | payer OTHER ==
[2018-08-13] MEDS ORDERED: ALPRAZolam TAB* 0.5 MG PO ONE (05:05)
--- NOTE | 2018-08-13 05:09 | ED ---
Psychiatric Complaint - HPI Summary HPI Summary: The patient is a 58 year old male who is presenting to the [facility] with a chief complaint of a lack of sleep. The patient has reportedly not slept for 70 hours. He called the police (911) and was brought to the [facility] via ambulance. Patient denies HI and SI, however has a hx of anxiety and depression. He lives alone and is . The patient is also no longer working at this time due to his disability (major depressive disorder). Symptoms are aggravated by nothing. Symptoms are alleviated by nothing. The patient is a currently agitated. - History Of Current Complaint Chief Complaint: EDMedicationRefill Time Seen by Provider: 08/13/18 04:47 Hx Obtained From: Patient Timing: Constant Character: Frustrated - Agitated Alleviating Factor(s): Nothing Associated Signs And Symptoms: Positive: Negative Related History: Positive For: Prior Psychiatric Issues - Depression and Anxiety Has Suicidal: Denies: Thoughts Has Homicidal: Denies: Thoughts - Allergies/Home Medications Allergies/Adverse Reactions: Allergies Allergy/AdvReac Type Severity Reaction Status Date / Time bupropion [From Wellbutrin] Allergy Rash Verified 04/01/18 14:35 sertraline [From Zoloft] Allergy Nausea Verified 04/01/18 14:35 PMH/Surg Hx/FS Hx/Imm Hx Endocrine/Hematology History: Reports: Hx Unexplained Bleeding - upper gi bleed 05/19/2012 Denies: Hx Anticoagulant Therapy, Hx Blood Disorders, Hx Blood Transfusions, Hx Bone Marrow Disease, Hx Diabetes, Hx Systemic Lupus Erythematosus, Hx Sickle Cell Disease, Hx Thyroid Disease, Hx Anemia Cardiovascular History: Reports: Hx Hypercholesterolemia Denies: Hx Angina, Hx Auto Implanted Cardiovert Defib, Hx Hypertension, Hx Pacemaker/ICD Comment Only: Other Cardiovascular Problems/Disorders - noted pt has bbb Respiratory History: Reports: Hx Pneumonia Denies: Hx Asthma, Hx Chronic Obstructive Pulmonary Disease (COPD) GI History: Reports: Hx Gastrointestinal Bleed - bloody emesis Comment Only: Hx Ulcer - unknown. possible History: Reports: Hx Benign Prostatic Hyperplasia - had gone to md on 2012, Other Problems/Disorders - enlarged prostate Denies: Hx Acute Renal Failure, Hx Dialysis, Hx Kidney Stones, Hx Renal Disease Musculoskeletal History: Reports: Hx Arthritis Denies: Hx Orthopedic Injury, Hx Osteoporosis Sensory History: Reports: Hx Contacts or Glasses - reading glasses Denies: Hx Cataracts, Hx Hearing Aid Opthamlomology History: Reports: Hx Contacts or Glasses - reading glasses Denies: Hx Cataracts Neurological History: Reports: Hx Headaches Denies: Hx Dementia, Hx Migraine, Hx Seizures, Other Neuro Impairments/ Disorders Psychiatric History: Reports: Hx Anxiety - pt takes anti anxiety med, and ativan , Hx Depression - unknown, Hx Panic Disorder, Hx Inpatient Treatment - [facility], H[facility], Hx of Violent Episodes Against Others - Patient has restraining order against him Denies: Hx Eating Disorder, Hx Substance Abuse - Surgical History Surgery Procedure, Year, and Place: n/a - Immunization History Date of Influenza Vaccine: 01/2018 Infectious Disease History: No Infectious Disease History: Denies: Hx Hepatitis, Hx Human Immunodeficiency Virus (HIV), Traveled Outside the [place] in Last 30 Days - Family History Known Family History: Positive: Other - Alzheimer's (mother) , Non-Contributory Family History: Pt is having a panic attack and unable to contribute a FHx - Social History Alcohol Use: Occasionally Alcohol Amount: Patient reports drinking wine daily Hx Substance Use: No Substance Use Type: Reports: None Hx Tobacco Use: Yes Smoking Status (MU): Former Smoker Type: Cigarettes Length of Time of Smoking/Using Tobacco: 4 years; smoked before but quit for 8 years Have You Smoked in the Last Year: Yes Review of Systems Constitutional: Other - Agitated; Lack of Sleep (70 hours) Eyes: Negative ENT: Negative Cardiovascular: Negative Respiratory: Negative Gastrointestinal: Negative Genitourinary: Negative Musculoskeletal: Negative Skin: Negative Neurological: Negative Psychological: Other - Negative SI, Negative HI Positive: Anxious All Other Systems Reviewed And Are Negative: Yes Physical Exam - Summary Physical Exam Summary: VITAL SIGNS: Reviewed. GENERAL: Patient is a well-developed and nourished (MALE) who is lying comfortable in the stretcher. Patient is not in any acute respiratory distress.Patient has been taking his anti-depressants; but is depressed. Negative SI; Negative HI HEAD AND FACE: No signs of trauma. No ecchymosis, hematomas or skull depressions. No sinus tenderness. EYES: PERRLA, EOMI x 2, No injected conjunctiva, no nystagmus. EARS: Hearing grossly intact. Ear canals and tympanic membranes are within normal limits. MOUTH: Oropharynx within normal limits. NECK: Supple, trachea is midline, no adenopathy, no JVD, no carotid bruit, no c- spine tenderness, neck with full ROM. CHEST: Symmetric, no tenderness at palpation LUNGS: Clear to auscultation bilaterally. No wheezing or crackles. CVS: Regular rate and rhythm, S1 and S2 present, no murmurs or gallops appreciated. ABDOMEN: Soft, non-tender. No signs of distention. No rebound no guarding, and no masses palpated. Bowel sounds are normal. EXTREMITIES: FROM in all major joints, no edema, no cyanosis or clubbing. NEURO: Alert and oriented x 3. No acute neurological deficits. Speech is normal and follows commands. SKIN: Dry and warm Triage Information Reviewed: Yes Vital Signs On Initial Exam: Initial Vitals Temp Pulse Resp BP Pulse Ox 98.6 F 92 18 153/102 96 08/13/18 04:45 08/13/18 04:45 08/13/18 04:45 08/13/18 04:45 08/13/18 04:45 Vital Signs Reviewed: Yes Diagnostics - Vital Signs Vital Signs Temp Pulse Resp BP Pulse Ox 08/13/18 04:45 98.6 F 92 18 153/102 96 - Laboratory Result Diagrams: 08/13/18 05:17 08/13/18 05:17 Lab Statement: Any lab studies that have been ordered have been reviewed, and results considered in the medical decision making process. Course/Dx - Course Course Of Treatment: The patient is a 58 year old male who is presenting to the [facility] with a chief complaint of lack of sleep. The patient has a hx of anxiety and depression which he is currently under medication for. The lack of sleep has been persistent for 70 hours. He denies HI and denies SI as well. The patient has been cleared for a mental health evaluation and is pending evaluation as well as disposition. The patient will be signed out to Dr. Velasquez. The dx will be Depression. - Differential Dx/Clinical Impression Provider Diagnosis: Depression Discharge - Sign-Out/Discharge Documenting (check all that apply): Sign-Out Patient Signing out patient TO: Charles Velasquez - Discharge Plan Condition: Stable Referrals: Reagan Holm MD [Primary Care Provider] - - Attestation Statements Document Initiated by Scribe: Yes Documenting Scribe: Tae [facility] Provider For Whom Scribe is Documenting (Include Credential): Dr. Ghassan Ramirez Scribe Attestation: Tae Garcia, scribed for Dr. Ghassan Ramirez on 08/13/18 at 0637. Status of Scribe Document: Ready
[2018-08-13 05:25] LABS: ABS Basophils 0.1 10^3/ul (0-0.2); ABS Eosinophils 0.1 10^3/ul (0-0.6); ABS Lymphocytes 1.6 10^3/ul (1.0-4.8); ABS Monocytes 0.6 10^3/ul (0-0.8); ABS Neutrophils 6.7 10^3/ul (1.5-7.7); ABS Nucleated RBC 0 10^3/ul; Eosinophil % 0.9 %; Hematocrit 48 % (36-46); Hemoglobin 15.5 g/dL (14.0-18.0); Mean Corpuscular HGB Conc 33 g/dL (31-36); Mean Corpuscular Hemoglobin 26 pg (27-31); Mean Corpuscular Volume 78 fL (80-94); Mean Platelet Volume 7.7 fL (7.4-10.4); Nucleated Red Blood Cells % 0.1; Platelet Count 206 10^3/uL (150-450); Red Blood Count 6.08 10^6 /uL (4.18-5.48); Red Cell Distribution Width 16 % (10.5-15); White Blood Count 9.1 10^3/uL (3.5-10.8)
[2018-08-13 05:41] LABS: ALT 17 U/L (7-52); AST 24 U/L (13-39); Albumin 4.7 g/dL (3.2-5.2); Albumin/Globulin Ratio 1.6 (1-3); Alkaline Phosphatase 59 U/L (34-104); Anion Gap 7 mmol/L (2-11); Blood Urea Nitrogen 16 mg/dL (6-24); CO2 Carbon Dioxide 31 mmol/L (22-32); Calcium 9.5 mg/dL (8.6-10.3); Chloride 101 mmol/L (101-111); EGFR African American 72.9 (>60); EGFR Non-African American 60.2 (>60); Globulin 2.9 g/dL (2-4); Glucose 101 mg/dL (70-100); Potassium 3.1 mmol/L (3.5-5.0); Sodium 139 mmol/L (135-145); Total Protein 7.6 g/dL (6.4-8.9); Urine Appearance Cloudy; Urine Bilirubin Negative (Negative); Urine Blood Negative (Negative); Urine Color Yellow; Urine Glucose Negative (Negative); Urine Ketones Negative (Negative); Urine Nitrite Negative (Negative); Urine Protein Negative (Negative); Urine Specific Gravity 1.015 (1.010-1.030); Urine Urobilinogen Negative (Negative)
[2018-08-13 05:56] LABS: Barbiturates Urine Screen None Detected (None Detect); Benzodiazepine Urine Screen None Detected (None Detect); Urine Cannabinoids Screen None Detected (None Detect)
[2018-08-13 06:11] LABS: Acetaminophen < 15 mcg/mL; Alcohol < 10 mg/dL (<10); Salicylate < 2.50 mg/dL (<30)
[2018-08-13 06:27] LABS: TSH (Thyroid Stimulating Horm) 1.36 mcIU/mL (0.34-5.60)
--- NOTE | 2018-08-13 07:14 | ED ---
Progress - Progress Note Progress Note: This patient is signed out from Dr. Ramirez awaiting mental health evaluation. Course/Dx - Course Course Of Treatment: The patient is a 58 year old male who is signed out from Dr. Ramirez at 0700 with a chief complaint of lack of sleep. The patient has a hx of anxiety and depression which he is currently under medication for.Bloodwork revealed a potassium of 3.1 for which he was given potassium chloride. 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 1410: Per physician scribe: Pt is safe for discharge, per Dr. Romero, psych. Dx: malingering, substance abuse mood disorder. - Diagnoses Provider Diagnoses: Malingering, Mood disorder, drug-induced Discharge - Sign-Out/Discharge Documenting (check all that apply): Patient Departure - DC Patient Received Moderate/Deep Sedation with Procedure: No - Discharge Plan Condition: Stable Disposition: HOME Prescriptions: Divalproex DR TAB(*) [Depakote DR(*)] 500 mg PO DAILY #[address] tab[address] Divalproex ER TAB(*) [Depakote ER TAB(*)] 500 mg PO DAILY 7 Days tab.er Patient Education Materials: Insomnia (ED) Referrals: Reagan Holm MD [Primary Care Provider] - - Billing Disposition and Condition Condition: STABLE Disposition: Home - Attestation Statements Document Initiated by Lucy: Yes Documenting Scribe: Danita Hein Provider For Whom Lucy is Documenting (Include Credential): Charles Velasquez MD Scribe Attestation: Danita Garcia, scribed for Charles Velasquez MD on 08/14/18 at 1444. Scribe Documentation Reviewed: Yes Provider Attestation: The documentation as recorded by the Danita lee accurately reflects the service I personally performed and the decisions made by me, Charles Velasquez MD Status of Scribe Document: Viewed
[2018-08-13] MEDS ORDERED: Potassium Chlor TAB* 20 MEQ TAB.ER PO ONE (08:05)
[2018-08-13] MEDS ORDERED: LORazepam TAB(*) 1 MG PO ONE (14:14)
[2018-08-13] MEDS ORDERED: LORazepam TAB(*) 0.5 MG ONE (14:15)
[2018-08-13 14:28] VITALS: BP 132/78
--- NOTE | 2018-08-13 15:05 | CONSULT ---
Identification - Patient Identification Reason for Psychiatric Consultation: Patient Distress -: Patient is a 58 year old, M admitted on . - MHU Identification Employment Status: Unemployed Hx Psychiatric Hospitalization: Yes Arrived to Hospital Via: Ambulatory - Called 911 History - Objective HPI: This 58 y/o, male with h/o admission to [facility] and repeated ED visits intoxicated or with anxiety/ insomnia or looking for sleep meds was brought to the ED last evening by ambulance after he called 911. His main complaint was " cannot sleep X 70 hours". After a dose of Xanax last evening he slept all night according to nursing report. Seen today he continues to complain that he is unable to sleep. His pharmacy was checked for existing meds and an additional prescription of Depakote was electronically sent. He was assessed and educated about how to take his meds etc. and a referral to his outpatient clinic was also sent. Then he started saying that he is alone and cannot acre for self. However, denies any SI, HI or acute psychosis. Past Medical History: Unremarcable. Radiology Results: Not done. Exam Appearance: Well Developed/Nourished Hygiene: Normal Grooming: Disheveled Psychomotor Activities: Normal Exhibits Abnormal Movement: No Attitude and Relatedness: Appropriate Eye Contact: Fair - Speech Quality: Unpressured Latencies: Normal Quantity: Appropriate Patient's Decription of Mood: "Sad" Observed Affect: Constricted Affect Consistent with: Dysphoria Patient's Thought Process: Coherent, Goal Directed Thought Content: No Passive Wish, No Suicidal Planning, No Homicidal Ideation, No Paranoid Ideation Experiencing Hallucinations: No, Sensorium is Clear Type of Hallucinations: Visual: No, Auditory: No, Command: No Level of Consciousness: Alert Orientation: Yes Intact, Yes Orientated to Time, Yes Orientated to Place, Yes Orientated to Person Impulse Control: Intact Insight and Judgement: Fair Impression - Impression Merits Inpatient Hospitalization: No Plan - Treatment Plan Continued Medication Management: Continue Outpt Medication - Discharge Plan Discharge Plan: Outpatient Follow Up Outpatient Program: [facility]
== END 2018-08-13 14:20 | disposition home or self-care (01) ==
LOC: ED 04:42
DX: F32.9 Major depressive disorder, single episode, unspecified (principal); E78.00 Pure hypercholesterolemia, unspecified; M19.90 Unspecified osteoarthritis, unspecified site; Z88.8 Allergy status to other drugs, medicaments and biological substances; Z87.01 Personal history of pneumonia (recurrent); Z87.891 Personal history of nicotine dependence
CPT/HCPCS: 36415; 80053; 80307; 80320; 80329; 81003; 84443; 85025; 99284; A9270-GY; G0480